=== PATIENT | male | born 1985 | race Caucasian/White ===

== ENCOUNTER 2016-08-25 14:53 | Emergency (ER) | payer OTHER ==
[~2016-08-25 14:53] MED LIST: ASPIRIN325 M2 PO; MOTRIN800 MG PO; NAPROSYN500 MG PO; OXYCONTIN10 MG PO; PERCOCET 325 MG1 TA2 PO; Percocet 325 MG1 TAB PO; SERTRALINE HYDR50 MG PO
[2016-08-25] MEDS ORDERED: PROVENTIL0.09 MG/A1 INH (15:34)
[2016-08-25] MEDS ORDERED: ZITHROMAX250 MG PO (15:34)
[2016-08-25] MEDS ORDERED: MUCINEX1200 M1 PO (15:34)
[2016-09-16] MEDS ORDERED: MUCINEX DM 60 M1 TER PO (17:29)
[2016-09-16] MEDS ORDERED: CLARITIN-D 12 H1 TAB PO (17:29)
[2016-09-16] MEDS ORDERED: MUCINEX1200 M1 PO (17:50)
== END 2016-08-25 15:47 | disposition home or self-care (01) ==
LOC: ED 14:53
DX: J40 Bronchitis, not specified as acute or chronic (principal); F17.200 Nicotine dependence, unspecified, uncomplicated; Z88.0 Allergy status to penicillin

== ENCOUNTER 2019-05-20 18:53 | Emergency (ER) | payer OTHER ==
[~2019-05-20] VITALS: Ht 175.2 cm; Wt 79.4 kg
[~2019-05-20 18:53] MED LIST changes: +CLARITIN-D 12 H1 TAB PO; +MUCINEX DM 60 M1 TER PO; +MUCINEX1200 M1 PO; +PROVENTIL0.09 MG/A1 INH; +ZITHROMAX250 MG PO
[2019-05-20] MEDS ORDERED: Nystatin Cream15 GM T (21:34)
== END 2019-05-20 22:00 | disposition home or self-care (01) ==
LOC: ED 18:53
DX: B37.49 Other urogenital candidiasis (principal); M19.90 Unspecified osteoarthritis, unspecified site; Z88.0 Allergy status to penicillin

== ENCOUNTER 2019-10-05 17:34 | Emergency (ER) | payer OTHER ==
[~2019-10-05] VITALS: Ht 175.2 cm; Wt 83.9 kg
[~2019-10-05 17:34] MED LIST changes: -CLEOCIN HCL150 MG PO; -PROBIOTIC1 EACH PO
[2019-10-05] MEDS ORDERED: CLEOCIN HCL150 MG PO (18:27)
[2019-10-05] MEDS ORDERED: PROBIOTIC1 EACH PO (18:27)
== END 2019-10-05 18:41 | disposition home or self-care (01) ==
LOC: ED 17:34
DX: L03.115 Cellulitis of right lower limb (principal); M19.90 Unspecified osteoarthritis, unspecified site; Z23 Encounter for immunization; Z88.0 Allergy status to penicillin; Z79.899 Other long term (current) drug therapy

== ENCOUNTER → 2019-10-05 | Outpatient (CLI) | payer OTHER ==
[~2019-10-05] MED LIST changes: +CLEOCIN HCL150 MG PO; +Nystatin Cream15 GM T; +PROBIOTIC1 EACH PO
== END | disposition home or self-care (01) ==
LOC: RAD 17:49
DX: M25.561 Pain in right knee (principal); M25.562 Pain in left knee

== ENCOUNTER 2023-04-24 13:05 | Emergency (ER) | payer OTHER ==
[~2023-04-24] VITALS: Ht 172.7 cm; Wt 90.7 kg
[~2023-04-24 13:05] MED LIST changes: +CLEOCIN HCL150 MG PO; +PROBIOTIC1 EACH PO
[2023-04-24] MEDS ORDERED: PREDNISONE50 MG PO (15:27)
[2023-04-24] MEDS ORDERED: EPIPEN 2-P0.3 MG/0.3 IJ (15:36)
== END 2023-04-24 15:38 | disposition home or self-care (01) ==
LOC: ED 13:05
DX: T78.40XA Allergy, unspecified, initial encounter (principal); M19.90 Unspecified osteoarthritis, unspecified site; F32.A Depression, unspecified; Z91.030 Bee allergy status; Z88.0 Allergy status to penicillin; X58.XXXA Exposure to other specified factors, initial encounter